=== PATIENT | male | born 1950 | race Caucasian/White ===

== ENCOUNTER 2017-09-15 21:06 | Observation (INO) | payer OTHER ==
[~2017-09-15] VITALS: Ht 182.9 cm; Wt 127.2 kg
[2017-09-15 22:25] LABS: HEMATOCRIT 38.2 % (38.0-50.0); HEMOGLOBIN 13.7 G/DL (12.5-16.6); MCH 34.6 PG (29.0-34.0); MCHC 35.9 G/DL (30.0-36.0); MCV 96.5 FL (86-99); PLATELET COUNT 128 K/uL (156-360); RBC DIS.WIDTH-CV 13.2 % (11.8-14.6); RBC DIS.WIDTH-SD 47.1 % (39-53); RED BLOOD COUNT 3.96 M/uL (4.00-5.50); WHITE BLOOD COUNT 4.1 K/uL (4.1-10.2)
[2017-09-15 22:40] LABS: CHLORIDE 106 mEq/L (99-109); POTASSIUM 4.1 mEq/L (3.7-5.4); SODIUM 137 mEq/L (136-147)
[2017-09-15 22:42] LABS: GLUCOSE 94 mg/dL (70-99)
[2017-09-15 22:45] LABS: TROP-I INTERPRETATION NEGATIVE; TROPONIN-I < 0.01 ng/mL (0.0-0.30)
[2017-09-15 22:46] LABS: CREATININE 1.2 mg/dL (0.6-1.3)
[2017-09-15 22:47] LABS: GFR ESTIMATE (CALCULATED) > 59 mL/min/ (58.99-99999); UREA NITROGEN (BUN) 18 mg/dL (9-23)
[2017-09-16] MEDS ORDERED: LAMICTAL25 MG PO (00:56)
[2017-09-16] MEDS ORDERED: CYMBALTA60 MG PO (00:57)
[2017-09-16] MEDS ORDERED: CYMBALTA30 MG PO (00:57)
[2017-09-16] MEDS ORDERED: SYNTHROID112 MCG PO (00:57)
[2017-09-16] MEDS ORDERED: SEROQUEL12.5 MG PO (00:57)
[2017-09-16] MEDS ORDERED: FLOMAX0.4 MG PO (00:57)
[2017-09-16] MEDS ORDERED: TOPROL XL25 MG PO (00:58)
[2017-09-16] MEDS ORDERED: BACLOFEN20 MG PO ×2 (00:59→01:00)
[2017-09-16] MEDS ORDERED: DEXILANT60 MG PO (00:59)
[2017-09-16] MEDS ORDERED: VITAMIN D31000 UNIT PO (01:00)
[2017-09-16] MEDS ORDERED: CLONAZEPAM1 MG PO (01:00)
[2017-09-16] MEDS ORDERED: ALEVE220 MG PO (01:00)
[2017-09-16] MEDS ORDERED: MEN'S MULTI-VI1 EACH PO (01:00)
[2017-09-16 02:34] LABS: TROP-I INTERPRETATION NEGATIVE; TROPONIN-I < 0.01 ng/mL (0.0-0.30)
[2017-09-16 02:52] VITALS: BP 162/79
[2017-09-16 08:26] LABS: THYROTROPIN (TSH) 2.1 MIU/L (0.4-5.5)
[2017-09-16 08:29] VITALS: BP 156/76
[2017-09-16] MEDS ORDERED: AMLODIPINE BESYL5 MG PO (09:24)
[2017-09-16 09:31] LABS: TROP-I INTERPRETATION NEGATIVE; TROPONIN-I < 0.01 ng/mL (0.0-0.30)
== END 2017-09-16 11:20 | disposition home or self-care (01) ==
LOC: EXP 21:06 → EME 21:06 → EDOF 09-16 01:26 → ENRESERV 09-16 01:29 → 4SOUTH 09-16 02:42
PROVIDERS: Hospitalist; Physician Assistant
DX: R07.9 Chest pain, unspecified (principal); G25.82 Stiff-man syndrome; I10 Essential (primary) hypertension; F31.9 Bipolar disorder, unspecified; N40.0 Benign prostatic hyperplasia without lower urinary tract symptoms; K21.9 Gastro-esophageal reflux disease without esophagitis; Z79.899 Other long term (current) drug therapy; R51 Headache; M54.9 Dorsalgia, unspecified; R06.02 Shortness of breath; Z88.0 Allergy status to penicillin; Z88.1 Allergy status to other antibiotic agents; Z91.013 Allergy to seafood; Z79.82 Long term (current) use of aspirin
CPT/HCPCS: 71046; 80048; 84443; 84484; 85027; 93005; G0378; J1644